=== PATIENT | male | born 1970 ===

== ENCOUNTER → 2016-04-19 | Outpatient (CLI) | payer BC ==
[2016-04-19 10:11] LABS: BASO % 0.4 %; BASO ABS # 0.02 K/uL (0-0.2); COMPLETE YES; EOS % 1.1 %; HEMATOCRIT 42.5 % (42-52); IG% 0.2 %; LYMPH % 37.5 %; LYMPH ABS # 1.68 K/uL (1.2-3.4); MEAN CELL VOLUME 80.5 fL (80-100); MEAN CORPUSCULAR HEMOGLOBIN 27.8 pg (25-34); MEAN CORPUSCULAR HGB CONC 34.6 g/dl (32-36); MEAN PLATELET VOLUME 11.4 fL (7.4-10.4); NEUT % 56.8 %; PLATELET COUNT 109 K/uL (130-400); RED BLOOD COUNT 5.28 M/uL (4.7-6.1); WHITE BLOOD COUNT 4.48 K/uL (4.8-10.8)
[2016-04-19 10:20] LABS: ALT/SGPT 55 U/L (12-78); BLOOD UREA NITROGEN 14 mg/dl (7-18); BUN/CREATININE RATIO 18.2 (10-20); CALCIUM 9.4 mg/dl (8.5-10.1); CARBON DIOXIDE 26 mmol/L (21-32); CHLORIDE 106 mmol/L (98-107); CHOLESTEROL 186 mg/dl (0-200); CREATININE 0.78 mg/dl (0.60-1.40); GLUCOSE 96 mg/dl (70-99); POTASSIUM 3.8 mmol/L (3.5-5.1); SODIUM 142 mmol/L (136-145)
[2016-04-19 10:24] LABS: ALB/GLOB RATIO 1.2 (0.9-2); ALKALINE PHOSPHATASE 101 U/L (45-117); AST/SGOT 42 U/L (15-37); CHOLESTEROL/HDL RATIO 3.7; FERRITIN 114.4 ng/ml (8.0-388.0); HDL CHOLESTEROL 50 mg/dl; LDL CHOLESTEROL CALCULATED 113 mg/dl; TRIGLYCERIDES 116 mg/dl (0-150); VERY LOW DENSITY LIPOPROT CALC 23 mg/dl
== END | disposition home or self-care (01) ==
LOC: C.LAB1850 09:01
PROVIDERS: ATTEND Internal Medicine
DX: D83.9 Common variable immunodeficiency, unspecified (principal); R74.8 Abnormal levels of other serum enzymes; Z00.00 Encounter for general adult medical examination without abnormal findings; Z13.1 Encounter for screening for diabetes mellitus; Z13.220 Encounter for screening for lipoid disorders

== ENCOUNTER → 2016-04-19 | Outpatient (CLI) | payer BC ==
--- NOTE | 2016-04-19 09:00 | DIAGNOSTIC IMAGING REPORT ---
ULTRASOUND TESTES AND SCROTUM CLINICAL HISTORY: Testicular pain and mass. COMPARISON STUDY: No priors. TECHNIQUE: Real-time, grayscale, and color Doppler sonography of the testes and scrotum is performed. Images are reviewed in the transverse and longitudinal planes. FINDINGS: The testes are normal in size and homogeneous in echotexture. The right testis measures 4.9 x 2.6 x 3.5 cm and the left testis measures 4.9 x 2.3 x 3.2 cm. No intratesticular mass is seen. Testicular blood flow is normal and symmetric. Normal Doppler waveforms are identified in both testes. The epididymal heads are normal in appearance. The right epididymal head measures 1.0 cm in length and the left epididymal head measures 1.2 cm in length. Scrotal wall thickening is suggested. A small left-sided varicocele is identified measuring up to 3 mm. No hydrocele is seen. IMPRESSION: 1. Unremarkable sonographic appearance of the testes. No testicular/scrotal mass is seen. 2. Mild scrotal wall thickening is suggested. Clinical correlation will be required. 3. Tiny left-sided varicocele. Electronically signed by: Jason Javier M.D. 04/19/2016 8:58 AM Dictated Date/Time: 04/19/2016 8:54 AM
--- NOTE | 2016-04-19 09:05 | DIAGNOSTIC IMAGING REPORT ---
BILIARY ULTRASOUND CLINICAL HISTORY: Elevated alkaline phosphatase COMPARISON STUDY: No previous studies for comparison. FINDINGS: The pancreas is poorly visualized, but no masses are evident.. No gallstones were visualized. There was gallbladder wall thickening. The gallbladder wall was echogenic. There is trace pericholecystic Fluid. No hepatic masses are visualized. There is hyperechoic periportal triads.. There is no common bile duct dilatation. There is no right-sided hydronephrosis. IMPRESSION: 1. Hyperechoic periportal triads. Thickened hyperechoic gallbladder wall with trace pericholecystic fluid. No gallstones identified. The findings are nonspecific. This appearance can be seen in hepatocellular disease. Given the gallbladder wall thickening and trace pericholecystic fluid, clinical correlation in regards to acalculus cholecystitis is recommended. Electronically signed by: Earl Casiano M.D. 04/19/2016 9:03 AM Dictated Date/Time: 04/19/2016 8:57 AM
== END | disposition home or self-care (01) ==
LOC: C.ULTR 07:49
PROVIDERS: ATTEND Internal Medicine
DX: R74.8 Abnormal levels of other serum enzymes (principal); N50.9 Disorder of male genital organs, unspecified; N50.819 Testicular pain, unspecified